=== PATIENT | male | born 1960 | race Caucasian/White ===

== ENCOUNTER → 2020-02-27 | Outpatient (CLI) | payer OTHER ==
--- NOTE | 2020-02-27 14:24 | XRAY Report ---
PROCEDURE: Shoulder 2 View RT INDICATIONS: RIGHT ROTATOR CUFF SYNDROME TECHNIQUE: 2 views of the shoulder were acquired. COMPARISON: None. FINDINGS: Bones: No fractures or dislocations. No suspicious bony lesions. Visualized ribs appear intact. M oderate acromioclavicular degenerative narrowing. Soft tissues: No suspicious soft tissue calcifications. IMPRESSION: Moderate acromioclavicular degenerative narrowing. Reviewed by: Almaz George MD on 02/27/2020 2:23 PM PDT Approved by: Almaz George MD on 02/27/2020 2:23 PM PDT Station ID: [id number]
== END ==
LOC: DI.WCP 14:21
PROVIDERS: ATTEND Family Medicine
DX: M75.101 Unspecified rotator cuff tear or rupture of right shoulder, not specified as traumatic (principal); M19.011 Primary osteoarthritis, right shoulder

== ENCOUNTER 2021-04-14 15:33 | Outpatient (CLI) | payer OTHER ==
--- NOTE | 2021-04-17 02:20 | XRAY Report ---
PROCEDURE: Knee 3 View LT INDICATIONS: L KNEE PX TECHNIQUE: 3 views of the left knee(s) were acquired. Images became available for interpretation on 04/16/2021. COMPARISON: None. FINDINGS: Bones: No fractures or dislocations. No suspicious bony lesions. There is mild medial and patellof emoral as well as minimal lateral compartment narrowing. Very minimal periarticular osteophytes are p resent. No erosions. Prominent lateral patellar subluxation is present. Soft tissues: Mild joint effusion. No suspicious soft tissue calcifications. 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 Reviewed by: Almaz George MD on 04/17/2021 12:43 AM PDT Approved by: Almaz George MD on 04/17/2021 12:43 AM PDT Station ID: [id number]
== END 2021-04-14 23:59 | disposition home or self-care (01) ==
LOC: DI.N 15:33
PROVIDERS: ATTEND Family Medicine
DX: M17.12 Unilateral primary osteoarthritis, left knee (principal)

== ENCOUNTER 2022-10-30 15:23 | Outpatient (CLI) | payer OTHER ==
--- NOTE | 2022-10-30 17:37 | CT Report ---
PROCEDURE: Low Dose Lung Cancer Screen INDICATIONS: CURRENT SMOKER TECHNIQUE: Noncontrast low-dose axial images were acquired from the pulmonary apices to the posterior costophren ic angles. Multiplanar MIP reformats were then reconstructed. For radiation dose reduction, the follo wing was used: automated exposure control, adjustment of mA and/or kV according to patient size. COMPARISON: None. FINDINGS: Image quality: Excellent. Prior cancer history: Unsure. Lungs and pleura: No pleural effusions. No pneumothorax. No suspicious pulmonary nodules which requi re follow up. Mediastinum: Heart size is normal. No pericardial effusions. No mediastinal adenopathy by size criter ia. No large vessel abnormality. Chest wall and lower neck: Thyroid is unremarkable. No axillary or supraclavicular adenopathy by size . Bones: No aggressive osseous abnormality. Upper Abdomen: Unremarkable. IMPRESSION: Lung RAD: 1 - Negative. Recommendation: Continue annual screening in 12 Months with LDCT Non-Lung Significant Findings: None. Reviewed by: Mariann Mcgill MD on 10/30/2022 5:36 PM PDT Approved by: Mariann Mcgill MD on 10/30/2022 5:36 PM PDT Station ID: [id number]
== END 2022-10-30 15:24 | disposition home or self-care (01) ==
LOC: DI 15:23
PROVIDERS: ATTEND Internal Medicine
DX: Z12.2 Encounter for screening for malignant neoplasm of respiratory organs (principal); F17.210 Nicotine dependence, cigarettes, uncomplicated

== ENCOUNTER 2023-05-08 07:37 | Outpatient (CLI) | payer OTHER ==
--- NOTE | 2023-05-09 09:42 | Ultrasound Report ---
PROCEDURE: Bladder INDICATIONS: NOCTURIA TECHNIQUE: Real-time scanning was performed of the kidneys and bladder, with image documentation. COMPARISON: None FINDINGS: Bladder: Pre-void bladder volume is 374.58 mL. Post-void residual is 52.7 mL. Pre-void images demo nstrate no intraluminal masses or stones. Circumferential bladder wall thickening. On pre-void image s, bilateral ureteral jets are noted with color Doppler interrogation. (Of note, ureteral jets may n ot be detectable in up to 25% of cases due to insufficient differences in specific gravity between ur eteral and bladder urine). Miscellaneous: No free pelvic fluid. Prostate measures 3.8 x 4.7 x 6 cm with a volume of 56.39 mL. IMPRESSION: 1. Circumferential bladder wall thickening suggestive of chronic bladder outlet obstruction with post void residual of 52.7 mL. 2. Enlarged prostate. Reviewed by: Mini Centeno MD on 05/09/2023 9:41 AM PST Approved by: Mini Centeno MD on 05/09/2023 9:41 AM PST Station ID: [id number]
== END 2023-05-08 07:38 | disposition home or self-care (01) ==
LOC: DI 07:37
PROVIDERS: ATTEND Internal Medicine
DX: N32.9 Bladder disorder, unspecified (principal); N40.1 Benign prostatic hyperplasia with lower urinary tract symptoms; R35.1 Nocturia